=== PATIENT | male | born 1985 | race Caucasian/White ===

== ENCOUNTER 2018-12-29 22:46 | Inpatient (IN) ==
[2018-12-30] MEDS ORDERED: DEXTROSE 50% 25 GM/50 ML VIAL IV PRN (02:45)
[2018-12-30] MEDS ORDERED: GLUCAGON 1 MG VIAL IM PRN (02:45)
[2018-12-30] MEDS: MORPHINE 4 MG/1 ML VIAL IV PRN ×3 (04:26→20:34)
[2018-12-30 06:25] LABS: Basophils % 0.1 % (0.0-0.8); Eosinophils # 0.1 10*3/uL (0.0-0.87); Eosinophils % 0.6 % (0.00-10.9); Hematocrit 25.9 VOL% (42.0-52.0); Hemoglobin 7.5 GM/DL (14.0-18.0); Immature Granulocytes % 0.6 %; Immature Granulocytes Absolute 0.06 #; Lymphocytes # 1.5 10*3/uL (1.4-4.0); Lymphocytes % 14.8 % (21.2-54.2); Mean Corpuscular Volume 81.4 FL (87-102); Monocytes % 5.9 % (1.7-12.7); Platelet Count 264 T/CUMM (130-400); Red Blood Count 3.18 MC/CUMM (3.8-5.5); Red Cell Distribution Width 19.3 % (9.3-17.3); White Blood Count 10.2 T/CUMM (4-12)
[2018-12-30 07:12] LABS: Albumin 1.7 G/DL (3.4-5.0); Calcium 7.9 MG/DL (8.5-10.1); Osmolality,Calculated 284.7 MOS/KG (273-304); Total Protein 6.3 G/DL (6.4-8.3)
[2018-12-30 09:31] LABS: Basophils % 0.2 % (0.0-0.8); Eosinophils # 0.1 10*3/uL (0.0-0.87); Eosinophils % 0.6 % (0.00-10.9); Hematocrit 27.9 VOL% (42.0-52.0); Immature Granulocytes % 0.4 %; Immature Granulocytes Absolute 0.04 #; Lymphocytes # 1.4 10*3/uL (1.4-4.0); Lymphocytes % 13.2 % (21.2-54.2); Mean Corpuscular HGB Conc 28.7 GM/DL (32-36); Mean Corpuscular Volume 81.3 FL (87-102); Mean Platelet Volume 9.4 FL (9.6-12.0); Monocytes % 5.4 % (1.7-12.7); Neutrophils % 80.2 % (38.7-73.9); Platelet Count 293 T/CUMM (130-400); Red Blood Count 3.43 MC/CUMM (3.8-5.5); Red Cell Distribution Width 19.5 % (9.3-17.3); White Blood Count 10.2 T/CUMM (4-12)
[2018-12-30 09:33] LABS: PT Patient Result 10.9 SECS
[2018-12-30] MEDS: CLINDAMYCIN INJ 600 MG in PREMIX 1 EACH IV SCH ×2 (09:40→16:12)
[2018-12-30] MEDS: INSULIN REGULAR 100 UNIT/ML SUBCUT SCH ×4 (09:40→22:44)
[2018-12-30 10:05] LABS: Vitamin B12 > 2000 PG/ML (211-911)
[2018-12-30 10:16] LABS: Platelet Estimate Normal
[2018-12-30 10:17] LABS: Anisocytosis 2+
[2018-12-30] MEDS ORDERED: LIDOCAINE 1% 20 ML VIAL ONE (10:29)
[2018-12-30] MEDS ORDERED: BUPIVACAINE MPF 0.25% /EPI 30 ML VIAL ONE (10:29)
[2018-12-30 10:43] LABS: Sedimentation Rate-Westergren 105 MM/HR (0-15)
[2018-12-30] MEDS ORDERED: INSULIN REGULAR 100 UNIT/ML SUBCUT ONE (11:35)
[2018-12-30] MEDS ORDERED: ONDANSETRON 4 MG/2 ML VIAL IV PRN (12:33)
[2018-12-30] MEDS: HYDROmorphone 2 MG/1 ML VIAL IV PRN ×2 (12:35→12:40)
[2018-12-30] MEDS ORDERED: PROPOFOL 200 MG/20 ML VIAL IV ONE (13:38)
[2018-12-30] MEDS ORDERED: SEVOFLURANE 1 UNIT/15 MINUTE INH ONE (13:39)
[2018-12-30] MEDS ORDERED: fentaNYL 100 MCG/2 ML VIAL ONE (13:39)
[2018-12-30] MEDS ORDERED: MIDAZOLAM 2 MG/2 ML VIAL ONE (13:39)
[2018-12-30] MEDS ORDERED: ONDANSETRON 4 MG/2 ML VIAL ONE (13:39)
[2018-12-30 16:19] LABS: Hepatitis B Surface Ag Quant < 0.10 Index; Hepatitis B Surface Ag Result Negative (Negative); Hepatitis C Virus Ab Quant 0.12 Index; Hepatitis C Virus Ab Result Negative (Negative)
[2018-12-30] MEDS: VANCOMYCIN INJ 1,500 MG in SODIUM CHLORIDE 0.9% 500 ML IV SCH (18:11)
[2018-12-31] MEDS: CLINDAMYCIN INJ 600 MG in PREMIX 1 EACH IV SCH ×3 (00:47→16:20)
[2018-12-31 04:53] LABS: Basophils % 0.1 % (0.0-0.8); Eosinophils % 0.5 % (0.00-10.9); Hemoglobin 7.7 GM/DL (14.0-18.0); Immature Granulocytes % 0.2 %; Immature Granulocytes Absolute 0.02 #; Lymphocytes # 1.5 10*3/uL (1.4-4.0); Lymphocytes % 17.2 % (21.2-54.2); Mean Corpuscular HGB Conc 29.6 GM/DL (32-36); Mean Corpuscular Volume 79.8 FL (87-102); Mean Platelet Volume 9.7 FL (9.6-12.0); Monocytes % 5.8 % (1.7-12.7); Neutrophils % 76.2 % (38.7-73.9); Platelet Count 272 T/CUMM (130-400); Red Blood Count 3.26 MC/CUMM (3.8-5.5); Red Cell Distribution Width 19.1 % (9.3-17.3); White Blood Count 8.4 T/CUMM (4-12)
[2018-12-31 05:51] LABS: Albumin 1.7 G/DL (3.4-5.0); Bilirubin,Total 2.4 MG/DL (0.2-1.0); Osmolality,Calculated 283.4 MOS/KG (273-304); Total Protein 6.5 G/DL (6.4-8.3)
[2018-12-31] MEDS: VANCOMYCIN INJ 1,500 MG in SODIUM CHLORIDE 0.9% 500 ML IV SCH ×2 (06:55→18:02)
[2018-12-31] MEDS: MORPHINE 4 MG/1 ML VIAL IV PRN ×2 (07:03→19:04)
[2018-12-31] MEDS: INSULIN REGULAR 100 UNIT/ML SUBCUT SCH ×4 (07:16→22:07)
[2018-12-31 09:23] LABS: Hemoglobin A1 (Alkaline) 97.5 % (96.5-98.5); Hemoglobin A2 (Alkaline) 2.5 % (1.5-3.5)
[2018-12-31] MEDS: SODIUM CHLORIDE 0.9% 1,000 ML IV SCH ×2 (14:20→22:25)
[2018-12-31] MEDS: INSULIN LISPRO 100 UNIT/ML SUBCUT SCH ×2 (16:17→20:49)
[2018-12-31] MEDS ORDERED: INSULIN GLARGINE 100 UNIT/ML SUBCUT SCH (21:00)
[2019-01-01] MEDS: CLINDAMYCIN INJ 600 MG in PREMIX 1 EACH IV SCH ×3 (00:07→15:01)
[2019-01-01] MEDS: VANCOMYCIN INJ 1,500 MG in SODIUM CHLORIDE 0.9% 500 ML IV SCH ×2 (06:20→18:53)
[2019-01-01] MEDS: MORPHINE 4 MG/1 ML VIAL IV PRN ×2 (07:46→21:32)
[2019-01-01] MEDS: INSULIN REGULAR 100 UNIT/ML SUBCUT SCH ×4 (08:47→20:56)
[2019-01-01] MEDS: INSULIN LISPRO 100 UNIT/ML SUBCUT SCH ×4 (08:47→20:55)
[2019-01-01] MEDS: FUROSEMIDE 40 MG TABLET PO SCH (11:42)
[2019-01-01] MEDS ORDERED: INSULIN GLARGINE 100 UNIT/ML SUBCUT SCH (17:15)
[2019-01-01] MEDS: SPIRONOLACTONE 25 MG TABLET PO SCH (20:55)
[2019-01-02] MEDS: VANCOMYCIN INJ 1,500 MG in SODIUM CHLORIDE 0.9% 500 ML IV SCH (05:52)
[2019-01-02 08:05] LABS: Hematocrit 26.1 VOL% (42.0-52.0); Hemoglobin 7.8 GM/DL (14.0-18.0)
[2019-01-02] MEDS ORDERED: SODIUM CHLORIDE 0.9% 1,000 ML IV PRN (08:13)
[2019-01-02] MEDS ORDERED: SULFAMETHOX/TRIMETHOPRIM 800-160 MG TABLET PO SCH (09:00)
[2019-01-02] MEDS: FUROSEMIDE 40 MG TABLET PO SCH (09:04)
[2019-01-02] MEDS: SPIRONOLACTONE 25 MG TABLET PO SCH (09:04)
[2019-01-02] MEDS: INSULIN LISPRO 100 UNIT/ML SUBCUT SCH ×2 (09:05→11:58)
[2019-01-02] MEDS: INSULIN REGULAR 100 UNIT/ML SUBCUT SCH ×2 (09:17→12:12)
[2019-01-02] MEDS: MORPHINE 4 MG/1 ML VIAL IV PRN (09:41)
[2019-01-02 13:32] VITALS: BP 127/84
[2019-01-02 13:59] LABS: Hematocrit 31.6 VOL% (42.0-52.0)
[2019-01-02] MEDS ORDERED: VANCOMYCIN INJ 1,250 MG in SODIUM CHLORIDE 0.9% 250 ML IV SCH (14:00)
[2019-01-02 14:01] LABS: Hemoglobin 9.4 GM/DL (14.0-18.0)
== END 2019-01-02 14:22 | disposition home or self-care (01) | DRG 580 ==
LOC: EDBD → EDUNIT# → N.ED 22:46 → N.EDINP 12-30 02:45 → SUATTDRO 12-30 02:45 → N.2E 12-30 10:35
PROVIDERS: ADMIT Emergency Medicine; ATTEND Internal Medicine

== ENCOUNTER 2020-05-21 04:48 | Inpatient (IN) ==
[2020-05-21 05:43] LABS: Basophils % 0.2 % (0.0-0.8); Eosinophils % 0.2 % (0.00-10.9); Hematocrit 25.8 VOL% (42.0-52.0); Hemoglobin 7.6 GM/DL (14.0-18.0); Immature Granulocytes % 0.6 %; Immature Granulocytes Absolute 0.03 #; Lymphocytes # 0.5 10*3/uL (1.4-4.0); Lymphocytes % 10.3 % (21.2-54.2); Mean Corpuscular HGB Conc 29.5 GM/DL (32-36); Mean Corpuscular Volume 72.5 FL (87-102); Monocytes % 8.7 % (1.7-12.7); Platelet Count 160 T/CUMM (130-400); Red Blood Count 3.56 MC/CUMM (3.8-5.5); Red Cell Distribution Width 16.2 % (9.3-17.3); White Blood Count 4.9 T/CUMM (4-12)
[2020-05-21 06:04] LABS: Albumin 2.8 G/DL (3.4-5.0); Bilirubin,Total 2.6 MG/DL (0.2-1.0); Calcium 8.3 MG/DL (8.5-10.1); INR 1.1; Osmolality,Calculated 286.8 MOS/KG (273-304); PT Patient Result 11.4 SECS (9.8-11.9); Partial Thromboplastin Time 30.1 SECS (23.9-33.8); Total Protein 7.4 G/DL (6.4-8.3)
[2020-05-21] MEDS ORDERED: PANTOPRAZOLE 40 MG VIAL IV STA (06:13)
[2020-05-21] MEDS ORDERED: SODIUM CHLORIDE 0.9% 1,000 ML IV STA (06:13)
[2020-05-21] MEDS ORDERED: INSULIN LISPRO 100 UNIT/ML SUBCUT STA (06:51)
[2020-05-21] MEDS ORDERED: GLUCAGON 1 MG VIAL IM PRN (08:44)
[2020-05-21] MEDS ORDERED: ONDANSETRON 4 MG/2 ML VIAL IV PRN (08:44)
[2020-05-21] MEDS ORDERED: DEXTROSE 50% 25 GM/50 ML SYRINGE IV PRN (08:44)
[2020-05-21] MEDS ORDERED: SODIUM CHLORIDE 0.9% 1,000 ML IV PRN ×2 (08:44→15:12)
[2020-05-21] MEDS: SODIUM CHLORIDE 0.9% 1,000 ML IV SCH ×2 (09:01→21:59)
[2020-05-21 10:49] LABS: Bilirubin,Urine Negative (Negative); Blood, Urine Negative (Negative); Glucose,Urine (UA) >=500 mg/dL (Negative); Ketones,Urine 20 mg/dL (Negative); Nitrite,Urine Negative (Negative); Protein,Urine Negative; Urine Appearance CLEAR (Clear); Urine Color Yellow (Yellow); Urine Specific Gravity 1.026 (1.001-1.035)
[2020-05-21] MEDS: INSULIN REGULAR 100 UNIT/ML SUBCUT SCH ×2 (13:05→17:47)
[2020-05-21] MEDS ORDERED: SODIUM CHLORIDE 0.9% 500 ML IV ONE (13:34)
[2020-05-21 14:58] LABS: Hemoglobin 6.2 GM/DL (14.0-18.0)
[2020-05-21] MEDS ORDERED: INSULIN REGULAR 100 UNIT/ML SUBCUT SCH (16:30)
[2020-05-21] MEDS: methylPREDNISolone SOD SUC 40 MG/1 ML VIAL IV SCH (20:04)
[2020-05-21] MEDS: FLUDROCORTISONE 0.1 MG TABLET PO SCH (20:05)
[2020-05-21] MEDS ORDERED: INSULIN GLARGINE 100 UNIT/ML SUBCUT SCH (21:00)
[2020-05-21 21:32] LABS: Hematocrit 24.7 VOL% (42.0-52.0); Hemoglobin 7.4 GM/DL (14.0-18.0)
[2020-05-22] MEDS: INSULIN REGULAR 100 UNIT/ML SUBCUT SCH ×6 (00:13→21:35)
[2020-05-22] MEDS: MORPHINE 4 MG/1 ML VIAL IV PRN (00:14)
[2020-05-22 02:19] LABS: Hematocrit 25.5 VOL% (42.0-52.0); Hemoglobin 7.8 GM/DL (14.0-18.0)
[2020-05-22] MEDS: methylPREDNISolone SOD SUC 40 MG/1 ML VIAL IV SCH ×2 (04:22→16:19)
[2020-05-22 04:28] LABS: Hematocrit 25.1 VOL% (42.0-52.0); Hemoglobin 7.8 GM/DL (14.0-18.0); Immature Granulocytes % 0.8 %; Immature Granulocytes Absolute 0.03 #; Lymphocytes # 0.4 10*3/uL (1.4-4.0); Lymphocytes % 9.8 % (21.2-54.2); Mean Corpuscular HGB Conc 31.1 GM/DL (32-36); Mean Corpuscular Volume 72.3 FL (87-102); Mean Platelet Volume 10.9 FL (9.6-12.0); Neutrophils % 85.4 % (38.7-73.9); Platelet Count 168 T/CUMM (130-400); Red Blood Count 3.47 MC/CUMM (3.8-5.5); Red Cell Distribution Width 17.3 % (9.3-17.3); White Blood Count 3.8 T/CUMM (4-12)
[2020-05-22 04:56] LABS: Albumin 2.3 G/DL (3.4-5.0); Bilirubin,Total 2.2 MG/DL (0.2-1.0); Calcium 7.5 MG/DL (8.5-10.1); Osmolality,Calculated 283.8 MOS/KG (273-304); Total Protein 6.7 G/DL (6.4-8.3)
[2020-05-22] MEDS: SODIUM CHLORIDE 0.9% 1,000 ML IV SCH ×5 (06:28→22:26)
[2020-05-22] MEDS ORDERED: INSULIN REGULAR 100 UNIT/ML SUBCUT SCH (08:00)
[2020-05-22] MEDS: FLUDROCORTISONE 0.1 MG TABLET PO SCH (08:37)
[2020-05-22] MEDS: PANTOPRAZOLE 40 MG VIAL IV SCH (09:02)
[2020-05-22 11:02] LABS: Hematocrit 26.5 VOL% (42.0-52.0); Hemoglobin 8.1 GM/DL (14.0-18.0)
[2020-05-22 14:12] LABS: Hematocrit 26.3 VOL% (42.0-52.0)
[2020-05-22] MEDS ORDERED: INSULIN REGULAR 100 UNIT/ML SUBCUT ONE (14:18)
[2020-05-22] MEDS ORDERED: INSULIN GLARGINE 100 UNIT/ML SUBCUT ONE (14:18)
[2020-05-22] MEDS ORDERED: predniSONE 20 MG TABLET PO SCH (21:00)
[2020-05-22] MEDS: INSULIN GLARGINE 100 UNIT/ML SUBCUT SCH (21:35)
[2020-05-23] MEDS: INSULIN REGULAR 100 UNIT/ML SUBCUT SCH ×4 (00:42→11:49)
[2020-05-23] MEDS: MORPHINE 4 MG/1 ML VIAL IV PRN (00:45)
[2020-05-23] MEDS: methylPREDNISolone SOD SUC 40 MG/1 ML VIAL IV SCH (04:25)
[2020-05-23 06:34] LABS: Bilirubin,Total 1.9 MG/DL (0.2-1.0); Calcium 7.5 MG/DL (8.5-10.1); Osmolality,Calculated 286.7 MOS/KG (273-304); Total Protein 5.8 G/DL (6.4-8.3)
[2020-05-23] MEDS: SODIUM CHLORIDE 0.9% 1,000 ML IV SCH (08:00)
[2020-05-23] MEDS: PANTOPRAZOLE 40 MG VIAL IV SCH (09:42)
[2020-05-23] MEDS: INSULIN GLARGINE 100 UNIT/ML SUBCUT SCH (09:42)
[2020-05-23 10:16] LABS: Basophils % 0.2 % (0.0-0.8); Eosinophils % 0.2 % (0.00-10.9); Hematocrit 25.3 VOL% (42.0-52.0); Hemoglobin 7.7 GM/DL (14.0-18.0); Immature Granulocytes % 0.5 %; Immature Granulocytes Absolute 0.03 #; Lymphocytes % 16.5 % (21.2-54.2); Mean Corpuscular HGB Conc 30.4 GM/DL (32-36); Mean Corpuscular Volume 72.7 FL (87-102); Mean Platelet Volume 10.1 FL (9.6-12.0); Monocytes % 7.5 % (1.7-12.7); Neutrophils % 75.1 % (38.7-73.9); Platelet Count 171 T/CUMM (130-400); Red Blood Count 3.48 MC/CUMM (3.8-5.5); Red Cell Distribution Width 17.5 % (9.3-17.3); White Blood Count 6.3 T/CUMM (4-12)
[2020-05-23 11:19] VITALS: BP 100/57
== END 2020-05-23 15:03 | disposition home or self-care (01) | DRG 242 ==
LOC: N.ED 04:48 → N.EDINP 08:44 → SUATTDRO 08:44 → N.CC 11:39 → N.2E 05-22 16:14
PROVIDERS: ADMIT Internal Medicine; ATTEND Family Medicine

== ENCOUNTER 2020-10-29 07:58 | Inpatient (IN) ==
[2020-10-29] MEDS ORDERED: PANTOPRAZOLE 40 MG VIAL IV STA (08:14)
[2020-10-29 08:22] LABS: Basophils % 0.1 % (0.0-0.8); Eosinophils % 0.1 % (0.00-10.9); Hematocrit 28.6 VOL% (42.0-52.0); Hemoglobin 8.2 GM/DL (14.0-18.0); Immature Granulocytes % 0.8 %; Immature Granulocytes Absolute 0.08 #; Lymphocytes # 0.9 10*3/uL (1.4-4.0); Lymphocytes % 8.7 % (21.2-54.2); Mean Corpuscular HGB Conc 28.7 GM/DL (32-36); Mean Corpuscular Volume 74.7 FL (87-102); Mean Platelet Volume 11.7 FL (9.6-12.0); Monocytes % 4.3 % (1.7-12.7); Platelet Count 212 T/CUMM (130-400); Red Blood Count 3.83 MC/CUMM (3.8-5.5); Red Cell Distribution Width 17.5 % (9.3-17.3); White Blood Count 9.8 T/CUMM (4-12)
[2020-10-29 08:35] LABS: INR 1.1; PT Patient Result 12.3 SECS (10.5-12.0); Partial Thromboplastin Time 28.3 SECS (23.9-33.8)
[2020-10-29 08:44] LABS: Albumin 2.7 G/DL (3.4-5.0); Bilirubin,Total 4.4 MG/DL (0.2-1.0); Calcium 8.5 MG/DL (8.5-10.1); Osmolality,Calculated 291.8 MOS/KG (273-304); Potassium 4.9 MMOL/L (3.5-5.1); Total Protein 6.8 G/DL (6.4-8.2)
[2020-10-29] MEDS ORDERED: INSULIN LISPRO 100 UNIT/ML SUBCUT STA (08:48)
[2020-10-29 09:12] LABS: Hypochromasia 1+; Microcytosis 1+; Platelet Estimate Adequate
[2020-10-29] MEDS ORDERED: ALBUTEROL 2.5 MG/3 ML NEB RESP TX PRN (10:32)
[2020-10-29] MEDS ORDERED: MAGNESIUM SULF RIDER 4 GM/100 ML PREMIX IV PRN (10:34)
[2020-10-29] MEDS ORDERED: OCTREOTIDE 100 MCG/ML SYRINGE IV ONE ×2 (10:34→13:00)
[2020-10-29] MEDS ORDERED: SODIUM BICARB INJ 100 MEQ in STERILE WATER INJ 400 ML IV PRN (10:34)
[2020-10-29] MEDS ORDERED: DEXTROSE 50% 25 GM/50 ML VIAL IV PRN ×3 (10:34→17:32)
[2020-10-29] MEDS ORDERED: SODIUM PHOSPHATE INJ 19.3 MMOL in SODIUM CHLORIDE 0.9% 250 ML IV PRN (10:34)
[2020-10-29] MEDS ORDERED: SODIUM CHLORIDE 0.9% 1,000 ML IV ONE (10:34)
[2020-10-29] MEDS ORDERED: POTASSIUM CHLORIDE RIDER 10 MEQ in PREMIX 1 EACH IV PRN (10:34)
[2020-10-29] MEDS ORDERED: INSULIN REGULAR DRIP 100 ML IV SCH (11:00)
[2020-10-29 11:06] LABS: Bilirubin,Urine Negative (Negative); Blood, Urine Negative (Negative); Glucose,Urine (UA) >=500 mg/dL (Negative); Ketones,Urine 80 mg/dL (Negative); Nitrite,Urine Negative (Negative); Protein,Urine Negative; RBC,Urine 1 /HPF (0-4); Urine Appearance CLEAR (Clear); Urine Color Yellow (Yellow); Urine Specific Gravity 1.021 (1.001-1.035); Urine Urobilinogen < 2.0 EU/DL (0.2-1.0)
[2020-10-29] MEDS: SODIUM CHLORIDE 0.9% 1,000 ML IV SCH ×5 (11:58→22:01)
[2020-10-29 12:52] LABS: Hematocrit 23.9 VOL% (42.0-52.0)
[2020-10-29 13:00] LABS: Calcium 7.5 MG/DL (8.5-10.1); Osmolality,Calculated 294.7 MOS/KG (273-304); Potassium 4.6 MMOL/L (3.5-5.1)
[2020-10-29] MEDS: PANTOPRAZOLE INJ 200 MG in SODIUM CHLORIDE 0.9% 250 ML IV SCH (13:09)
[2020-10-29] MEDS: OCTREOTIDE 500 MCG in SODIUM CHLORIDE 0.9% 100 ML IV SCH ×2 (14:21→22:10)
[2020-10-29] MEDS ORDERED: SODIUM CHLORIDE 0.9% 1,000 ML IV PRN (14:25)
[2020-10-29] MEDS: DEXTROSE 5% NACL 0.9% 1,000 ML IV SCH ×2 (16:10→21:54)
[2020-10-29 16:31] LABS: Hematocrit 22.4 VOL% (42.0-52.0); Hemoglobin 6.6 GM/DL (14.0-18.0)
[2020-10-29 16:44] LABS: Calcium 7.5 MG/DL (8.5-10.1); Osmolality,Calculated 290.3 MOS/KG (273-304); Potassium 4.1 MMOL/L (3.5-5.1)
[2020-10-29] MEDS: LACTULOSE 20 GM/30 ML UDCUP PO SCH ×2 (16:57→22:13)
[2020-10-29] MEDS ORDERED: GLUCAGON 1 MG VIAL IM PRN (17:32)
[2020-10-29] MEDS: INSULIN GLARGINE 100 UNIT/ML SUBCUT SCH ×2 (18:06→21:55)
[2020-10-29] MEDS: INSULIN LISPRO 100 UNIT/ML SUBCUT SCH (21:45)
[2020-10-29] MEDS ORDERED: ONDANSETRON 4 MG/2 ML VIAL IV PRN (23:30)
[2020-10-29] MEDS ORDERED: PROMETHAZINE 25 MG/1 ML VIAL IM PRN (23:32)
[2020-10-30] MEDS: OCTREOTIDE 500 MCG in SODIUM CHLORIDE 0.9% 100 ML IV SCH ×3 (00:20→23:20)
[2020-10-30 00:50] LABS: Hematocrit 21.7 VOL% (42.0-52.0); Hemoglobin 6.7 GM/DL (14.0-18.0)
[2020-10-30 02:53] LABS: Basophils % 0.1 % (0.0-0.8); Eosinophils # 0.1 10*3/uL (0.0-0.87); Eosinophils % 0.9 % (0.00-10.9); Hematocrit 21.6 VOL% (42.0-52.0); Hemoglobin 6.6 GM/DL (14.0-18.0); Immature Granulocytes % 0.4 %; Immature Granulocytes Absolute 0.04 #; Lymphocytes # 1.4 10*3/uL (1.4-4.0); Lymphocytes % 15.1 % (21.2-54.2); Mean Corpuscular HGB Conc 30.6 GM/DL (32-36); Mean Corpuscular Volume 73.5 FL (87-102); Mean Platelet Volume 10.4 FL (9.6-12.0); Monocytes % 6.7 % (1.7-12.7); Neutrophils % 76.8 % (38.7-73.9); Platelet Count 174 T/CUMM (130-400); Red Blood Count 2.94 MC/CUMM (3.8-5.5); White Blood Count 9.3 T/CUMM (4-12)
[2020-10-30 03:04] LABS: INR 1.1; PT Patient Result 12.4 SECS (10.5-12.0)
[2020-10-30 03:11] LABS: Albumin 2.2 G/DL (3.4-5.0); Calcium 7.4 MG/DL (8.5-10.1); Osmolality,Calculated 275.7 MOS/KG (273-304); Potassium 3.7 MMOL/L (3.5-5.1); Risk Ratio 6.43; Total Protein 5.3 G/DL (6.4-8.2); VLDL CHOLESTEROL 24.2 MG/DL
[2020-10-30] MEDS ORDERED: SODIUM CHLORIDE 0.9% 1,000 ML IV PRN ×3 (03:24→16:39)
[2020-10-30] MEDS: SODIUM CHLORIDE 0.45% 1,000 ML IV SCH ×2 (05:25→13:30)
[2020-10-30] MEDS: DEXTROSE 5% NACL 0.9% 1,000 ML IV SCH (05:25)
[2020-10-30] MEDS: INSULIN LISPRO 100 UNIT/ML SUBCUT SCH ×4 (08:17→20:37)
[2020-10-30 08:33] LABS: Hemoglobin 7.1 GM/DL (14.0-18.0)
[2020-10-30] MEDS: INSULIN GLARGINE 100 UNIT/ML SUBCUT SCH ×2 (08:50→20:38)
[2020-10-30] MEDS ORDERED: LACTATED RINGERS 1,000 ML IV SCH (09:30)
[2020-10-30] MEDS ORDERED: propofoL 200 MG/20 ML VIAL IV ONE (12:42)
[2020-10-30] MEDS ORDERED: LIDOCAINE 2% 5 ML VIAL ONE (12:42)
[2020-10-30 13:38] LABS: Hematocrit 22.3 VOL% (42.0-52.0); Hemoglobin 6.9 GM/DL (14.0-18.0)
[2020-10-30] MEDS: MAGNESIUM SULF RIDER 2 GM/50 ML PREMIX IV PRN (13:58)
[2020-10-30] MEDS: LACTULOSE 20 GM/30 ML UDCUP PO SCH ×3 (14:15→21:16)
[2020-10-30] MEDS: PANTOPRAZOLE INJ 200 MG in SODIUM CHLORIDE 0.9% 250 ML IV SCH (17:51)
[2020-10-30] MEDS ORDERED: predniSONE 20 MG TABLET PO SCH (21:00)
[2020-10-30] MEDS ORDERED: azaTHIOprine 50 MG TABLET PO SCH (21:00)
[2020-10-30 21:54] LABS: Hematocrit 23.9 VOL% (42.0-52.0); Hemoglobin 7.5 GM/DL (14.0-18.0)
[2020-10-31 00:38] LABS: Hemoglobin 7.5 GM/DL (14.0-18.0)
[2020-10-31 05:08] LABS: Basophils % 0.2 % (0.0-0.8); Eosinophils # 0.1 10*3/uL (0.0-0.87); Eosinophils % 1.1 % (0.00-10.9); Hematocrit 23.9 VOL% (42.0-52.0); Hemoglobin 7.3 GM/DL (14.0-18.0); Immature Granulocytes % 0.6 %; Immature Granulocytes Absolute 0.03 #; Lymphocytes # 1.1 10*3/uL (1.4-4.0); Lymphocytes % 21.4 % (21.2-54.2); Mean Corpuscular HGB Conc 30.5 GM/DL (32-36); Mean Corpuscular Volume 79.1 FL (87-102); Mean Platelet Volume 10.7 FL (9.6-12.0); Monocytes % 8.1 % (1.7-12.7); Neutrophils % 68.6 % (38.7-73.9); Platelet Count 145 T/CUMM (130-400); Red Blood Count 3.02 MC/CUMM (3.8-5.5); Red Cell Distribution Width 19.5 % (9.3-17.3); White Blood Count 5.3 T/CUMM (4-12)
[2020-10-31 05:26] LABS: Albumin 2.1 G/DL (3.4-5.0); Calcium 7.4 MG/DL (8.5-10.1); Osmolality,Calculated 286.4 MOS/KG (273-304); Total Protein 5.1 G/DL (6.4-8.2)
[2020-10-31 05:28] LABS: Eosinophils 1 % (0-10); Hypochromasia 1+; Lymphocytes 15 % (20-55); Microcytosis 1+; Platelet Estimate Adequate; Segmented Neutrophils 78 % (50-85); Total Cells Counted 100
[2020-10-31 08:20] LABS: Hematocrit 24.7 VOL% (42.0-52.0); Hemoglobin 7.6 GM/DL (14.0-18.0)
[2020-10-31] MEDS: MAGNESIUM SULF RIDER 2 GM/50 ML PREMIX IV PRN (08:53)
[2020-10-31] MEDS: SODIUM CHLORIDE 0.45% 1,000 ML IV SCH (08:53)
[2020-10-31] MEDS: INSULIN LISPRO 100 UNIT/ML SUBCUT SCH ×4 (08:54→21:03)
[2020-10-31] MEDS: LACTULOSE 20 GM/30 ML UDCUP PO SCH ×3 (09:05→21:03)
[2020-10-31] MEDS: OCTREOTIDE 500 MCG in SODIUM CHLORIDE 0.9% 100 ML IV SCH ×2 (09:31→14:57)
[2020-10-31] MEDS: PANTOPRAZOLE INJ 200 MG in SODIUM CHLORIDE 0.9% 250 ML IV SCH ×2 (14:57→21:05)
[2020-10-31] MEDS: DEXTROSE 5% NACL 0.9% 1,000 ML IV SCH (15:25)
[2020-10-31] MEDS: INSULIN GLARGINE 100 UNIT/ML SUBCUT SCH (21:04)
[2020-11-01] MEDS: OCTREOTIDE 500 MCG in SODIUM CHLORIDE 0.9% 100 ML IV SCH ×2 (05:08→08:06)
[2020-11-01] MEDS: SODIUM CHLORIDE 0.45% 1,000 ML IV SCH (05:09)
[2020-11-01] MEDS: INSULIN LISPRO 100 UNIT/ML SUBCUT SCH ×4 (07:21→21:06)
[2020-11-01] MEDS: LACTULOSE 20 GM/30 ML UDCUP PO SCH ×3 (08:05→21:12)
[2020-11-01 08:32] LABS: Eosinophils # 0.1 10*3/uL (0.0-0.87); Eosinophils % 1.4 % (0.00-10.9); Hematocrit 23.9 VOL% (42.0-52.0); Hemoglobin 7.6 GM/DL (14.0-18.0); Immature Granulocytes % 0.5 %; Immature Granulocytes Absolute 0.02 #; Lymphocytes # 0.9 10*3/uL (1.4-4.0); Lymphocytes % 20.2 % (21.2-54.2); Mean Corpuscular HGB Conc 31.8 GM/DL (32-36); Mean Corpuscular Volume 76.6 FL (87-102); Mean Platelet Volume 9.9 FL (9.6-12.0); Monocytes % 8.6 % (1.7-12.7); Neutrophils % 69.3 % (38.7-73.9); Platelet Count 136 T/CUMM (130-400); Red Blood Count 3.12 MC/CUMM (3.8-5.5); Red Cell Distribution Width 19.6 % (9.3-17.3); White Blood Count 4.4 T/CUMM (4-12)
[2020-11-01 08:44] LABS: Calcium 7.4 MG/DL (8.5-10.1); Osmolality,Calculated 279.5 MOS/KG (273-304); Potassium 3.6 MMOL/L (3.5-5.1)
[2020-11-01] MEDS: PANTOPRAZOLE INJ 200 MG in SODIUM CHLORIDE 0.9% 250 ML IV SCH ×2 (11:40→21:07)
[2020-11-01] MEDS: INSULIN GLARGINE 100 UNIT/ML SUBCUT SCH (21:12)
[2020-11-02] MEDS: SODIUM CHLORIDE 0.45% 1,000 ML IV SCH (00:51)
[2020-11-02 05:59] LABS: Basophils % 0.3 % (0.0-0.8); Eosinophils % 1.1 % (0.00-10.9); Hematocrit 23.6 VOL% (42.0-52.0); Immature Granulocytes % 0.3 %; Immature Granulocytes Absolute 0.01 #; Lymphocytes # 0.8 10*3/uL (1.4-4.0); Mean Corpuscular HGB Conc 29.7 GM/DL (32-36); Mean Corpuscular Volume 79.7 FL (87-102); Mean Platelet Volume 10.5 FL (9.6-12.0); Monocytes % 7.3 % (1.7-12.7); Platelet Count 119 T/CUMM (130-400); Red Blood Count 2.96 MC/CUMM (3.8-5.5); Red Cell Distribution Width 19.6 % (9.3-17.3); White Blood Count 3.6 T/CUMM (4-12)
[2020-11-02 06:13] LABS: Calcium 7.5 MG/DL (8.5-10.1); Osmolality,Calculated 286.8 MOS/KG (273-304); Potassium 3.8 MMOL/L (3.5-5.1)
[2020-11-02] MEDS: LACTULOSE 20 GM/30 ML UDCUP PO SCH (08:27)
[2020-11-02] MEDS: INSULIN LISPRO 100 UNIT/ML SUBCUT SCH ×2 (08:27→12:21)
[2020-11-02] MEDS ORDERED: SODIUM CHLORIDE 0.9% 1,000 ML IV PRN (10:24)
[2020-11-02 13:54] VITALS: BP 101/67
[2020-11-02 14:16] LABS: Hematocrit 24.8 VOL% (42.0-52.0); Hemoglobin 7.7 GM/DL (14.0-18.0)
== END 2020-11-02 16:54 | disposition home or self-care (01) | DRG 229 ==
LOC: N.ED 07:58 → SUATTDRO 10:32 → N.EDINP 10:32 → N.CC 11:32
PROVIDERS: ADMIT Internal Medicine; ATTEND Family Medicine
PROC: EGDWEBL (ICD-10-PCS; 2020-10-30 09:45)

== ENCOUNTER 2020-11-22 07:54 | Inpatient (IN) ==
[2020-11-22] MEDS ORDERED: KETOROLAC 30 MG/1 ML VIAL IM STA (08:13)
[2020-11-22 08:41] LABS: Basophils % 0.1 % (0.0-0.8); Eosinophils # 0.1 10*3/uL (0.0-0.87); Eosinophils % 0.6 % (0.00-10.9); Hemoglobin 7.4 GM/DL (14.0-18.0); Lymphocytes # 0.7 10*3/uL (1.4-4.0); Lymphocytes % 6.3 % (21.2-54.2); Mean Corpuscular HGB Conc 29.6 GM/DL (32-36); Mean Platelet Volume 10.2 FL (9.6-12.0); Monocytes % 7.2 % (1.7-12.7); Neutrophils % 84.8 % (38.7-73.9); Platelet Count 301 T/CUMM (130-400); Red Blood Count 3.29 MC/CUMM (3.8-5.5); White Blood Count 10.4 T/CUMM (4-12)
[2020-11-22 09:12] LABS: Albumin 2.1 G/DL (3.4-5.0); Bilirubin,Total 5.2 MG/DL (0.2-1.0); Calcium 8.2 MG/DL (8.5-10.1); Osmolality,Calculated 280.8 MOS/KG (273-304); Potassium 3.6 MMOL/L (3.5-5.1); Total Protein 7.1 G/DL (6.4-8.2)
[2020-11-22] MEDS ORDERED: TISSUE ADHESIVE 1 EACH APPLICATOR TOP ONE (09:35)
[2020-11-22] MEDS ORDERED: KETOROLAC 30 MG/1 ML VIAL IV STA (10:07)
[2020-11-22] MEDS ORDERED: DEXTROSE 50% 25 GM/50 ML VIAL IV PRN ×2 (10:10→10:14)
[2020-11-22] MEDS ORDERED: ONDANSETRON 4 MG/2 ML VIAL IV PRN (10:10)
[2020-11-22] MEDS ORDERED: GLUCAGON 1 MG VIAL IM PRN (10:10)
[2020-11-22 10:20] LABS: Neutrophils,Peritoneal Fluid 36 %
[2020-11-22 10:21] LABS: RBC,Peritoneal Fluid < 1 T/CUMM
[2020-11-22] MEDS: INSULIN REGULAR 100 UNIT/ML SUBCUT SCH ×3 (12:30→22:17)
[2020-11-22] MEDS: FUROSEMIDE 40 MG/4 ML VIAL IV SCH ×2 (15:14→22:17)
[2020-11-22] MEDS: SPIRONOLACTONE 100 MG TABLET PO SCH (15:14)
[2020-11-22] MEDS: predniSONE 20 MG TABLET PO SCH ×2 (15:14→22:17)
[2020-11-22] MEDS: azaTHIOprine 50 MG TABLET PO SCH ×2 (15:14→22:17)
[2020-11-22] MEDS: traMADol 50 MG TABLET PO PRN ×2 (17:13→22:23)
[2020-11-22 18:59] LABS: Blood, Urine Negative (Negative); Glucose,Urine (UA) >=500 mg/dL (Negative); Ketones,Urine Negative (Negative); Mucus,Urine Few /LPF (Occasional); Nitrite,Urine Negative (Negative); Protein,Urine Negative; RBC,Urine 4 /HPF (0-4); Squamous Epithelial Cell,Urine Occasional /HPF (0-10); Urine Appearance CLEAR (Clear); Urine Color Amber (Yellow); Urine Specific Gravity 1.023 (1.001-1.035)
[2020-11-22 19:00] LABS: Bilirubin,Urine Small mg/dL (Negative)
[2020-11-22] MEDS ORDERED: INSULIN GLARGINE 100 UNIT/ML SUBCUT SCH (21:00)
[2020-11-23] MEDS: INSULIN REGULAR 100 UNIT/ML SUBCUT SCH ×6 (01:01→22:08)
[2020-11-23 06:36] LABS: Basophils % 0.1 % (0.0-0.8); Hematocrit 22.3 VOL% (42.0-52.0); Hemoglobin 6.6 GM/DL (14.0-18.0); Immature Granulocytes % 0.7 %; Immature Granulocytes Absolute 0.06 #; Lymphocytes # 0.6 10*3/uL (1.4-4.0); Lymphocytes % 7.5 % (21.2-54.2); Mean Corpuscular HGB Conc 29.6 GM/DL (32-36); Mean Corpuscular Volume 75.3 FL (87-102); Mean Platelet Volume 10.3 FL (9.6-12.0); Monocytes % 3.6 % (1.7-12.7); Neutrophils % 88.1 % (38.7-73.9); Platelet Count 277 T/CUMM (130-400); Red Blood Count 2.96 MC/CUMM (3.8-5.5); Red Cell Distribution Width 19.9 % (9.3-17.3); White Blood Count 8.3 T/CUMM (4-12)
[2020-11-23 06:50] LABS: INR 1.1; PT Patient Result 11.8 SECS (10.5-12.0)
[2020-11-23 07:07] LABS: Bilirubin,Direct 4.01 MG/DL (0.0-0.20)
[2020-11-23 07:19] LABS: Albumin 1.8 G/DL (3.4-5.0); Bilirubin,Total 4.9 MG/DL (0.2-1.0); Calcium 7.8 MG/DL (8.5-10.1); Osmolality,Calculated 279.5 MOS/KG (273-304); Potassium 4.1 MMOL/L (3.5-5.1); Total Protein 6.5 G/DL (6.4-8.2)
[2020-11-23] MEDS: predniSONE 20 MG TABLET PO SCH (09:28)
[2020-11-23] MEDS: SPIRONOLACTONE 100 MG TABLET PO SCH (09:29)
[2020-11-23] MEDS: azaTHIOprine 50 MG TABLET PO SCH ×2 (09:30→22:07)
[2020-11-23] MEDS: FUROSEMIDE 40 MG/4 ML VIAL IV SCH ×2 (09:30→22:09)
[2020-11-23] MEDS ORDERED: MELOXICAM 7.5 MG TABLET PO SCH (11:03)
[2020-11-23] MEDS ORDERED: SODIUM CHLORIDE 0.9% 1,000 ML IV PRN (11:05)
[2020-11-23] MEDS ORDERED: ACETAMINOPHEN 500 MG TABLET PO PRN (16:06)
[2020-11-23] MEDS ORDERED: IRON DEXTRAN 25 MG in SYRINGE 1 EACH IV ONE (17:00)
[2020-11-23] MEDS ORDERED: SODIUM CHLORIDE 0.9% IV ONE (18:00)
[2020-11-23] MEDS ORDERED: IRON DEXTRAN IV ONE (18:00)
[2020-11-23] MEDS ORDERED: INSULIN GLARGINE 100 UNIT/ML SUBCUT SCH (21:00)
[2020-11-23] MEDS: traMADol 50 MG TABLET PO PRN (22:06)
[2020-11-23] MEDS: FAMOTIDINE 20 MG TABLET PO SCH (22:07)
[2020-11-24 05:14] LABS: Basophils % 0.1 % (0.0-0.8); Eosinophils % 0.2 % (0.00-10.9); Hematocrit 24.9 VOL% (42.0-52.0); Hemoglobin 7.9 GM/DL (14.0-18.0); Lymphocytes # 1.4 10*3/uL (1.4-4.0); Lymphocytes % 14.9 % (21.2-54.2); Mean Corpuscular HGB Conc 31.7 GM/DL (32-36); Mean Platelet Volume 9.5 FL (9.6-12.0); Monocytes % 8.8 % (1.7-12.7); Platelet Count 262 T/CUMM (130-400); Red Blood Count 3.32 MC/CUMM (3.8-5.5); Red Cell Distribution Width 19.9 % (9.3-17.3); White Blood Count 9.6 T/CUMM (4-12)
[2020-11-24 05:46] LABS: Albumin 1.7 G/DL (3.4-5.0); Bilirubin,Total 3.6 MG/DL (0.2-1.0); Calcium 7.9 MG/DL (8.5-10.1); Potassium 3.3 MMOL/L (3.5-5.1); Total Protein 6.2 G/DL (6.4-8.2)
[2020-11-24] MEDS: traMADol 50 MG TABLET PO PRN (06:05)
[2020-11-24] MEDS: INSULIN REGULAR 100 UNIT/ML SUBCUT SCH (07:38)
[2020-11-24] MEDS ORDERED: POTASSIUM CHLORIDE 20 MEQ TABLET PO ONE (08:18)
[2020-11-24] MEDS: azaTHIOprine 50 MG TABLET PO SCH (08:38)
[2020-11-24] MEDS: SPIRONOLACTONE 100 MG TABLET PO SCH (08:38)
[2020-11-24] MEDS: FAMOTIDINE 20 MG TABLET PO SCH (08:38)
[2020-11-24] MEDS: FUROSEMIDE 40 MG/4 ML VIAL IV SCH (08:40)
[2020-11-24] MEDS ORDERED: predniSONE 20 MG TABLET PO SCH (09:00)
[2020-11-24] MEDS ORDERED: NAPROXEN 250 MG TABLET PO PRN (10:01)
[2020-11-24 11:59] VITALS: BP 120/55
== END 2020-11-24 12:41 | disposition home or self-care (01) ==
LOC: N.ED 07:54 → N.EDINP 07:54 → SUATTDRO 09:58 → N.5E 16:01
PROVIDERS: ADMIT Hospitalist; ATTEND Emergency Medicine

== ENCOUNTER 2020-11-26 03:29 | Inpatient (IN) ==
[2020-11-26] MEDS ORDERED: MORPHINE 4 MG/1 ML VIAL IV STA (04:03)
[2020-11-26] MEDS ORDERED: ONDANSETRON 4 MG/2 ML VIAL IV ONE (04:03)
[2020-11-26] MEDS ORDERED: PANTOPRAZOLE INJ 80 MG in SODIUM CHLORIDE 0.9% 100 ML IV ONE (04:03)
[2020-11-26] MEDS ORDERED: PANTOPRAZOLE 40 MG VIAL IV ONE (04:11)
[2020-11-26 04:13] LABS: Basophils % 0.1 % (0.0-0.8); Eosinophils # 0.1 10*3/uL (0.0-0.87); Eosinophils % 0.4 % (0.00-10.9); Hematocrit 22.5 VOL% (42.0-52.0); Hemoglobin 6.7 GM/DL (14.0-18.0); Immature Granulocytes % 1.3 %; Immature Granulocytes Absolute 0.22 #; Mean Corpuscular HGB Conc 29.8 GM/DL (32-36); Mean Corpuscular Volume 78.7 FL (87-102); Mean Platelet Volume 10.2 FL (9.6-12.0); Monocytes % 7.6 % (1.7-12.7); NRBC # 0.03 10*3/uL; Neutrophils % 84.6 % (38.7-73.9); Platelet Count 259 T/CUMM (130-400); Red Blood Count 2.86 MC/CUMM (3.8-5.5)
[2020-11-26 04:24] LABS: INR 1.1; PT Patient Result 12.6 SECS (10.5-12.0); Partial Thromboplastin Time 28.3 SECS (23.9-33.8)
[2020-11-26 04:28] LABS: Albumin 1.9 G/DL (3.4-5.0); Bilirubin,Total 4.4 MG/DL (0.2-1.0); Calcium 8.4 MG/DL (8.5-10.1); Osmolality,Calculated 281.2 MOS/KG (273-304); Potassium 3.3 MMOL/L (3.5-5.1); Total Protein 5.9 G/DL (6.4-8.2)
[2020-11-26 04:32] LABS: Hypochromasia 2+; Ovalocytes Slight; Platelet Estimate Adequate
[2020-11-26] MEDS ORDERED: SODIUM CHLORIDE 0.9% 1,000 ML IV STA (04:42)
[2020-11-26] MEDS: PANTOPRAZOLE INJ 200 MG in SODIUM CHLORIDE 0.9% 250 ML IV SCH (05:10)
[2020-11-26] MEDS ORDERED: SODIUM CHLORIDE 0.9% 1,000 ML IV PRN (05:34)
[2020-11-26] MEDS ORDERED: FUROSEMIDE 20 MG/2 ML VIAL IV PRN (05:35)
[2020-11-26] MEDS ORDERED: DEXTROSE 50% 25 GM/50 ML VIAL IV PRN (05:38)
[2020-11-26] MEDS ORDERED: GLUCAGON 1 MG VIAL IM PRN (05:38)
[2020-11-26] MEDS ORDERED: ONDANSETRON 4 MG/2 ML VIAL IV PRN (05:39)
[2020-11-26] MEDS: INSULIN LISPRO 100 UNIT/ML SUBCUT SCH ×4 (07:16→20:35)
[2020-11-26 08:15] LABS: Hematocrit 19.7 VOL% (42.0-52.0)
[2020-11-26 08:47] LABS: Hemoglobin 5.9 GM/DL (14.0-18.0)
[2020-11-26] MEDS ORDERED: POTASSIUM CHLORIDE RIDER 10 MEQ/100 ML PREMIX IV PRN (09:02)
[2020-11-26] MEDS: LACTATED RINGERS 1,000 ML IV SCH (10:45)
[2020-11-26] MEDS ORDERED: propofoL 200 MG/20 ML VIAL IV ONE (11:15)
[2020-11-26] MEDS ORDERED: ETOMIDATE 20 MG/10 ML VIAL IV ONE (11:15)
[2020-11-26] MEDS ORDERED: LIDOCAINE 2% 5 ML VIAL ONE (11:15)
[2020-11-26] MEDS: OCTREOTIDE 500 MCG in SODIUM CHLORIDE 0.9% 100 ML IV SCH ×2 (13:00→23:37)
[2020-11-26] MEDS: MORPHINE 4 MG/1 ML VIAL IV PRN ×3 (13:04→21:25)
[2020-11-26 13:39] LABS: Hematocrit 25.3 VOL% (42.0-52.0)
[2020-11-26 13:49] LABS: Hemoglobin 7.7 GM/DL (14.0-18.0)
[2020-11-26 19:49] LABS: Hematocrit 26.9 VOL% (42.0-52.0); Hemoglobin 8.2 GM/DL (14.0-18.0)
[2020-11-26] MEDS: ACETAMINOPHEN 325 MG TABLET PO PRN (22:22)
[2020-11-27] MEDS: PANTOPRAZOLE INJ 200 MG in SODIUM CHLORIDE 0.9% 250 ML IV SCH (03:32)
[2020-11-27] MEDS: MORPHINE 4 MG/1 ML VIAL IV PRN ×2 (03:40→09:40)
[2020-11-27 05:13] LABS: Basophils % 0.2 % (0.0-0.8); Eosinophils % 0.2 % (0.00-10.9); Hematocrit 23.9 VOL% (42.0-52.0); Hemoglobin 7.7 GM/DL (14.0-18.0); Immature Granulocytes % 1.3 %; Immature Granulocytes Absolute 0.26 #; Lymphocytes # 1.5 10*3/uL (1.4-4.0); Lymphocytes % 7.4 % (21.2-54.2); Mean Corpuscular HGB Conc 32.2 GM/DL (32-36); Mean Corpuscular Volume 79.7 FL (87-102); Mean Platelet Volume 10.1 FL (9.6-12.0); NRBC # 0.02 10*3/uL; Neutrophils % 81.9 % (38.7-73.9); Platelet Count 225 T/CUMM (130-400); Red Cell Distribution Width 22.2 % (9.3-17.3); White Blood Count 19.9 T/CUMM (4-12)
[2020-11-27 05:38] LABS: Albumin 1.6 G/DL (3.4-5.0); Bilirubin,Total 7.1 MG/DL (0.2-1.0); Calcium 8.1 MG/DL (8.5-10.1); Osmolality,Calculated 276.8 MOS/KG (273-304); Potassium 4.1 MMOL/L (3.5-5.1); Total Protein 5.5 G/DL (6.4-8.2)
[2020-11-27] MEDS: INSULIN LISPRO 100 UNIT/ML SUBCUT SCH ×4 (08:28→21:10)
[2020-11-27] MEDS: OCTREOTIDE 500 MCG in SODIUM CHLORIDE 0.9% 100 ML IV SCH ×2 (09:40→23:28)
[2020-11-27] MEDS: LACTATED RINGERS 1,000 ML IV SCH (10:43)
[2020-11-27 13:29] LABS: Hematocrit 25.9 VOL% (42.0-52.0)
[2020-11-27] MEDS: oxyCODONE IR 5 MG TABLET PO PRN ×2 (14:26→22:12)
[2020-11-27] MEDS ORDERED: LORazepam 2 MG/1 ML VIAL IV PRN (15:06)
[2020-11-27 16:02] LABS: Folate 9.53 NG/ML (5.38-24.0)
[2020-11-27] MEDS: CIPROFLOXACIN INJ 400 MG/200 ML PREMIX IV SCH (18:23)
[2020-11-27] MEDS: ACETAMINOPHEN 325 MG TABLET PO PRN (21:09)
[2020-11-27] MEDS: INSULIN GLARGINE 100 UNIT/ML SUBCUT SCH (21:09)
[2020-11-28] MEDS: PANTOPRAZOLE INJ 200 MG in SODIUM CHLORIDE 0.9% 250 ML IV SCH (04:48)
[2020-11-28] MEDS: CIPROFLOXACIN INJ 400 MG/200 ML PREMIX IV SCH ×2 (04:48→17:19)
[2020-11-28 06:30] LABS: Basophils % 0.1 % (0.0-0.8); Eosinophils # 0.1 10*3/uL (0.0-0.87); Eosinophils % 0.4 % (0.00-10.9); Hematocrit 25.1 VOL% (42.0-52.0); Hemoglobin 7.7 GM/DL (14.0-18.0); Immature Granulocytes % 1.7 %; Immature Granulocytes Absolute 0.24 #; Lymphocytes # 1.2 10*3/uL (1.4-4.0); Lymphocytes % 8.6 % (21.2-54.2); Mean Corpuscular HGB Conc 30.7 GM/DL (32-36); Mean Corpuscular Volume 82.3 FL (87-102); Mean Platelet Volume 9.8 FL (9.6-12.0); Monocytes % 8.4 % (1.7-12.7); Neutrophils % 80.8 % (38.7-73.9); Platelet Count 218 T/CUMM (130-400); Red Blood Count 3.05 MC/CUMM (3.8-5.5); Red Cell Distribution Width 23.9 % (9.3-17.3); White Blood Count 14.5 T/CUMM (4-12)
[2020-11-28 06:56] LABS: Hypochromasia 2+; Microcytosis 1+; Platelet Estimate Adequate
[2020-11-28 07:06] LABS: Albumin 1.5 G/DL (3.4-5.0); Calcium 7.9 MG/DL (8.5-10.1); Osmolality,Calculated 267.7 MOS/KG (273-304); Potassium 3.9 MMOL/L (3.5-5.1); Total Protein 5.6 G/DL (6.4-8.2)
[2020-11-28] MEDS: FOLIC ACID 1 MG TABLET PO SCH (08:43)
[2020-11-28] MEDS: INSULIN GLARGINE 100 UNIT/ML SUBCUT SCH ×2 (08:43→20:53)
[2020-11-28] MEDS: INSULIN LISPRO 100 UNIT/ML SUBCUT SCH ×4 (08:44→20:52)
[2020-11-28] MEDS: ACETAMINOPHEN 325 MG TABLET PO PRN (16:23)
[2020-11-28 17:58] LABS: Hematocrit 24.9 VOL% (42.0-52.0); Hemoglobin 7.9 GM/DL (14.0-18.0)
[2020-11-28] MEDS: oxyCODONE IR 5 MG TABLET PO PRN (19:17)
[2020-11-28] MEDS: MORPHINE 4 MG/1 ML VIAL IV PRN (20:51)
[2020-11-29] MEDS: CIPROFLOXACIN INJ 400 MG/200 ML PREMIX IV SCH ×2 (04:30→17:14)
[2020-11-29] MEDS: MORPHINE 4 MG/1 ML VIAL IV PRN (04:30)
[2020-11-29] MEDS: PANTOPRAZOLE INJ 200 MG in SODIUM CHLORIDE 0.9% 250 ML IV SCH (04:30)
[2020-11-29 05:48] LABS: Albumin 1.5 G/DL (3.4-5.0); Bilirubin,Total 6.5 MG/DL (0.2-1.0); Calcium 7.9 MG/DL (8.5-10.1); Osmolality,Calculated 263.2 MOS/KG (273-304); Potassium 3.5 MMOL/L (3.5-5.1); Total Protein 5.8 G/DL (6.4-8.2)
[2020-11-29 08:08] LABS: Basophils % 0.2 % (0.0-0.8); Eosinophils # 0.1 10*3/uL (0.0-0.87); Eosinophils % 0.4 % (0.00-10.9); Hematocrit 24.7 VOL% (42.0-52.0); Hemoglobin 7.8 GM/DL (14.0-18.0); Immature Granulocytes % 1.3 %; Immature Granulocytes Absolute 0.15 #; Lymphocytes # 1.3 10*3/uL (1.4-4.0); Mean Corpuscular HGB Conc 31.6 GM/DL (32-36); Mean Corpuscular Volume 82.9 FL (87-102); Mean Platelet Volume 9.8 FL (9.6-12.0); Monocytes % 8.8 % (1.7-12.7); Neutrophils % 78.3 % (38.7-73.9); Platelet Count 186 T/CUMM (130-400); Red Blood Count 2.98 MC/CUMM (3.8-5.5); Red Cell Distribution Width 24.3 % (9.3-17.3); White Blood Count 11.8 T/CUMM (4-12)
[2020-11-29] MEDS: INSULIN GLARGINE 100 UNIT/ML SUBCUT SCH (08:13)
[2020-11-29] MEDS: INSULIN LISPRO 100 UNIT/ML SUBCUT SCH ×4 (08:16→21:44)
[2020-11-29] MEDS: FOLIC ACID 1 MG TABLET PO SCH (08:16)
[2020-11-29 08:27] LABS: Hypochromasia 2+; Microcytosis 1+
[2020-11-29 08:28] LABS: Ovalocytes Slight; Platelet Estimate Adequate; Polychromasia Slight; Target Cells Slight
[2020-11-29] MEDS ORDERED: fentaNYL 100 MCG/2 ML VIAL ONE ×2 (08:28→10:36)
[2020-11-29] MEDS ORDERED: LIDOCAINE 2% 5 ML VIAL ONE (08:28)
[2020-11-29] MEDS ORDERED: propofoL 200 MG/20 ML VIAL IV ONE (08:28)
[2020-11-29] MEDS ORDERED: MIDAZOLAM 2 MG/2 ML VIAL ONE (08:28)
[2020-11-29] MEDS ORDERED: PHENYLEPHRINE 1 MG/10 ML SYRINGE IV ONE (10:17)
[2020-11-29] MEDS ORDERED: ONDANSETRON 4 MG/2 ML VIAL ONE (10:22)
[2020-11-29] MEDS ORDERED: SEVOFLURANE 1 UNIT/15 MINUTE INH ONE (10:23)
[2020-11-29] MEDS ORDERED: LACTATED RINGERS 1,000 ML IV SCH (10:30)
[2020-11-29] MEDS ORDERED: VANCOMYCIN INJ 1,000 MG in SODIUM CHLORIDE 0.9% 250 ML IV SCH (11:00)
[2020-11-29] MEDS ORDERED: VANCOMYCIN INJ 1,750 MG in SODIUM CHLORIDE 0.9% 500 ML IV ONE (13:00)
[2020-11-29] MEDS: oxyCODONE IR 5 MG TABLET PO PRN (14:13)
[2020-11-29 18:27] LABS: Hematocrit 26.4 VOL% (42.0-52.0)
[2020-11-29] MEDS: PANTOPRAZOLE 40 MG VIAL IV SCH (20:56)
[2020-11-30] MEDS: VANCOMYCIN INJ 1,250 MG in SODIUM CHLORIDE 0.9% 250 ML IV SCH ×2 (01:49→13:55)
[2020-11-30] MEDS: MORPHINE 4 MG/1 ML VIAL IV PRN (01:54)
[2020-11-30] MEDS: CIPROFLOXACIN INJ 400 MG/200 ML PREMIX IV SCH ×2 (04:36→17:46)
[2020-11-30 05:17] LABS: Basophils % 0.2 % (0.0-0.8); Eosinophils % 0.2 % (0.00-10.9); Hematocrit 23.5 VOL% (42.0-52.0); Hemoglobin 7.1 GM/DL (14.0-18.0); Immature Granulocytes % 1.7 %; Immature Granulocytes Absolute 0.22 #; Lymphocytes # 1.3 10*3/uL (1.4-4.0); Lymphocytes % 9.6 % (21.2-54.2); Mean Corpuscular HGB Conc 30.2 GM/DL (32-36); Mean Corpuscular Volume 84.5 FL (87-102); Mean Platelet Volume 10.2 FL (9.6-12.0); Monocytes % 7.8 % (1.7-12.7); Neutrophils % 80.5 % (38.7-73.9); Platelet Count 165 T/CUMM (130-400); Red Blood Count 2.78 MC/CUMM (3.8-5.5); Red Cell Distribution Width 24.8 % (9.3-17.3); White Blood Count 13.3 T/CUMM (4-12)
[2020-11-30 05:40] LABS: Hypochromasia 1+; Microcytosis 1+; Platelet Estimate Adequate
[2020-11-30 05:54] LABS: Albumin 1.4 G/DL (3.4-5.0); Bilirubin,Total 7.5 MG/DL (0.2-1.0); Calcium 7.3 MG/DL (8.5-10.1); Osmolality,Calculated 268.7 MOS/KG (273-304); Potassium 3.6 MMOL/L (3.5-5.1); Total Protein 5.4 G/DL (6.4-8.2)
[2020-11-30] MEDS: oxyCODONE IR 5 MG TABLET PO PRN ×3 (06:22→20:35)
[2020-11-30 09:34] LABS: Hepatitis B Core IgM Quant < 0.05 Index; Hepatitis B Surface Ag Result Non-Reactive (NonReactive); Hepatitis C Virus Ab Quant 0.05 Index; Hepatitis C Virus Ab Result Non-Reactive (NonReactive)
[2020-11-30] MEDS: INSULIN GLARGINE 100 UNIT/ML SUBCUT SCH ×2 (09:54→20:34)
[2020-11-30] MEDS: PANTOPRAZOLE 40 MG VIAL IV SCH ×2 (09:54→20:33)
[2020-11-30] MEDS: FOLIC ACID 1 MG TABLET PO SCH (09:55)
[2020-11-30] MEDS: INSULIN LISPRO 100 UNIT/ML SUBCUT SCH ×4 (09:55→20:33)
[2020-11-30 10:28] LABS: Basophils % 0.2 % (0.0-0.8); Eosinophils % 0.1 % (0.00-10.9); Hematocrit 28.2 VOL% (42.0-52.0); Hemoglobin 8.4 GM/DL (14.0-18.0); Immature Granulocytes % 2.1 %; Immature Granulocytes Absolute 0.29 #; Lymphocytes % 7.4 % (21.2-54.2); Mean Corpuscular HGB Conc 29.8 GM/DL (32-36); Mean Corpuscular Volume 86.2 FL (87-102); Mean Platelet Volume 10.5 FL (9.6-12.0); Monocytes % 6.8 % (1.7-12.7); Neutrophils % 83.4 % (38.7-73.9); Platelet Count 189 T/CUMM (130-400); Red Blood Count 3.27 MC/CUMM (3.8-5.5); Red Cell Distribution Width 24.8 % (9.3-17.3); White Blood Count 13.7 T/CUMM (4-12)
[2020-11-30 10:47] LABS: Hypochromasia 1+; Microcytosis 1+; Platelet Estimate Adequate
[2020-11-30] MEDS: ALBUMIN 25% 25 GM/100 ML VIAL IV SCH ×2 (11:03→15:35)
[2020-11-30] MEDS ORDERED: DIAZEPAM 5 MG TABLET PO ONE (15:34)
[2020-12-01] MEDS: ALBUMIN 25% 25 GM/100 ML VIAL IV SCH ×4 (00:09→23:26)
[2020-12-01] MEDS: VANCOMYCIN INJ 1,250 MG in SODIUM CHLORIDE 0.9% 250 ML IV SCH ×2 (01:15→13:42)
[2020-12-01] MEDS: MORPHINE 4 MG/1 ML VIAL IV PRN ×2 (02:30→09:33)
[2020-12-01] MEDS: CIPROFLOXACIN INJ 400 MG/200 ML PREMIX IV SCH ×2 (05:53→20:18)
[2020-12-01] MEDS: oxyCODONE IR 5 MG TABLET PO PRN ×2 (06:44→18:26)
[2020-12-01] MEDS: PANTOPRAZOLE 40 MG VIAL IV SCH ×2 (09:30→20:18)
[2020-12-01] MEDS: FOLIC ACID 1 MG TABLET PO SCH (09:30)
[2020-12-01] MEDS: INSULIN GLARGINE 100 UNIT/ML SUBCUT SCH ×2 (09:30→20:19)
[2020-12-01] MEDS: INSULIN LISPRO 100 UNIT/ML SUBCUT SCH ×4 (09:30→20:19)
[2020-12-01] MEDS ORDERED: POTASSIUM CHLORIDE 20 MEQ TABLET PO PRN (11:32)
[2020-12-01 11:37] LABS: Basophils % 0.1 % (0.0-0.8); Eosinophils % 0.4 % (0.00-10.9); Hematocrit 23.6 VOL% (42.0-52.0); Hemoglobin 7.4 GM/DL (14.0-18.0); Immature Granulocytes % 1.3 %; Immature Granulocytes Absolute 0.14 #; Lymphocytes # 0.9 10*3/uL (1.4-4.0); Lymphocytes % 8.5 % (21.2-54.2); Mean Corpuscular HGB Conc 31.4 GM/DL (32-36); Mean Corpuscular Volume 84.6 FL (87-102); Monocytes % 6.5 % (1.7-12.7); Neutrophils % 83.2 % (38.7-73.9); Platelet Count 159 T/CUMM (130-400); Red Blood Count 2.79 MC/CUMM (3.8-5.5); Red Cell Distribution Width 25.2 % (9.3-17.3); White Blood Count 10.8 T/CUMM (4-12)
[2020-12-01] MEDS: VANCOMYCIN INJ 1,000 MG in SODIUM CHLORIDE 0.9% 250 ML IV SCH ×2 (14:57→21:22)
[2020-12-02] MEDS: VANCOMYCIN INJ 1,000 MG in SODIUM CHLORIDE 0.9% 250 ML IV SCH (05:06)
[2020-12-02 06:05] LABS: Basophils % 0.2 % (0.0-0.8); Eosinophils # 0.1 10*3/uL (0.0-0.87); Eosinophils % 0.7 % (0.00-10.9); Hematocrit 23.9 VOL% (42.0-52.0); Hemoglobin 7.3 GM/DL (14.0-18.0); Immature Granulocytes % 1.9 %; Immature Granulocytes Absolute 0.19 #; Lymphocytes # 1.1 10*3/uL (1.4-4.0); Lymphocytes % 11.1 % (21.2-54.2); Mean Corpuscular HGB Conc 30.5 GM/DL (32-36); Mean Corpuscular Volume 85.7 FL (87-102); Mean Platelet Volume 10.5 FL (9.6-12.0); Monocytes % 7.4 % (1.7-12.7); Neutrophils % 78.7 % (38.7-73.9); Platelet Count 190 T/CUMM (130-400); Red Blood Count 2.79 MC/CUMM (3.8-5.5); Red Cell Distribution Width 25.4 % (9.3-17.3); White Blood Count 9.8 T/CUMM (4-12)
[2020-12-02 06:28] LABS: Albumin 2.2 G/DL (3.4-5.0); Bilirubin,Total 4.4 MG/DL (0.2-1.0); Calcium 8.1 MG/DL (8.5-10.1); Osmolality,Calculated 268.8 MOS/KG (273-304); Potassium 3.2 MMOL/L (3.5-5.1); Total Protein 5.7 G/DL (6.4-8.2)
[2020-12-02] MEDS: ALBUMIN 25% 25 GM/100 ML VIAL IV SCH ×3 (09:33→23:30)
[2020-12-02] MEDS: INSULIN LISPRO 100 UNIT/ML SUBCUT SCH ×4 (09:33→21:31)
[2020-12-02] MEDS: FOLIC ACID 1 MG TABLET PO SCH (09:33)
[2020-12-02] MEDS: PANTOPRAZOLE 40 MG VIAL IV SCH ×2 (09:34→21:30)
[2020-12-02] MEDS: MORPHINE 4 MG/1 ML VIAL IV PRN ×2 (09:43→12:41)
[2020-12-02] MEDS: INSULIN GLARGINE 100 UNIT/ML SUBCUT SCH ×2 (09:44→21:32)
[2020-12-02] MEDS: CIPROFLOXACIN INJ 400 MG/200 ML PREMIX IV SCH ×2 (09:45→21:35)
[2020-12-03] MEDS: ALBUMIN 25% 25 GM/100 ML VIAL IV SCH ×2 (08:48→15:52)
[2020-12-03] MEDS: PANTOPRAZOLE 40 MG VIAL IV SCH ×2 (08:49→21:04)
[2020-12-03] MEDS: FOLIC ACID 1 MG TABLET PO SCH (08:49)
[2020-12-03] MEDS: INSULIN GLARGINE 100 UNIT/ML SUBCUT SCH ×2 (08:49→22:04)
[2020-12-03] MEDS: INSULIN LISPRO 100 UNIT/ML SUBCUT SCH ×4 (09:55→21:07)
[2020-12-03] MEDS: CIPROFLOXACIN INJ 400 MG/200 ML PREMIX IV SCH (10:04)
[2020-12-03] MEDS: oxyCODONE IR 5 MG TABLET PO PRN (18:08)
[2020-12-03] MEDS: CIPROFLOXACIN 500 MG TABLET PO SCH (21:03)
[2020-12-04] MEDS: ALBUMIN 25% 25 GM/100 ML VIAL IV SCH ×2 (00:05→08:53)
[2020-12-04] MEDS: oxyCODONE IR 5 MG TABLET PO PRN ×2 (00:13→04:04)
[2020-12-04] MEDS: INSULIN LISPRO 100 UNIT/ML SUBCUT SCH ×2 (08:31→11:44)
[2020-12-04] MEDS: CIPROFLOXACIN 500 MG TABLET PO SCH (08:53)
[2020-12-04] MEDS: FOLIC ACID 1 MG TABLET PO SCH (08:53)
[2020-12-04] MEDS: PANTOPRAZOLE 40 MG VIAL IV SCH (08:54)
[2020-12-04] MEDS: INSULIN GLARGINE 100 UNIT/ML SUBCUT SCH (09:50)
[2020-12-04 11:58] VITALS: BP 108/68
== END 2020-12-04 16:15 | disposition home or self-care (01) | DRG 280 ==
LOC: N.ED 03:29 → N.EDINP 03:29 → N.5E 05:42 → SUATTDRO 09:49
PROVIDERS: ADMIT Internal Medicine; ATTEND Internal Medicine

== ENCOUNTER 2020-12-12 07:02 | Inpatient (IN) ==
[2020-12-12] MEDS ORDERED: ONDANSETRON 4 MG/2 ML VIAL IV STA (07:35)
[2020-12-12] MEDS ORDERED: PANTOPRAZOLE 40 MG VIAL IV STA (07:35)
[2020-12-12 07:55] LABS: Basophils % 0.2 % (0.0-0.8); Eosinophils % 0.1 % (0.00-10.9); Hematocrit 23.6 VOL% (42.0-52.0); Hemoglobin 7.6 GM/DL (14.0-18.0); Immature Granulocytes % 0.6 %; Immature Granulocytes Absolute 0.09 #; Lymphocytes # 0.4 10*3/uL (1.4-4.0); Lymphocytes % 2.9 % (21.2-54.2); Mean Corpuscular HGB Conc 32.2 GM/DL (32-36); Mean Corpuscular Volume 87.7 FL (87-102); Mean Platelet Volume 10.2 FL (9.6-12.0); Monocytes % 5.6 % (1.7-12.7); Neutrophils % 90.6 % (38.7-73.9); Platelet Count 245 T/CUMM (130-400); Red Blood Count 2.69 MC/CUMM (3.8-5.5); Red Cell Distribution Width 23.9 % (9.3-17.3); White Blood Count 14.3 T/CUMM (4-12)
[2020-12-12 08:00] LABS: INR 1.1; PT Patient Result 12.1 SECS (10.5-12.0); Partial Thromboplastin Time 28.6 SECS (23.9-33.8)
[2020-12-12 08:03] LABS: Albumin 2.8 G/DL (3.4-5.0); Bilirubin,Total 4.8 MG/DL (0.2-1.0); Calcium 9.6 MG/DL (8.5-10.1); Osmolality,Calculated 281.1 MOS/KG (273-304); Potassium 3.7 MMOL/L (3.5-5.1); Total Protein 6.8 G/DL (6.4-8.2)
[2020-12-12 08:22] LABS: Band Neutrophils 2 % (0-10); Hypochromasia 1+; Lymphocytes 1 % (20-55); Microcytosis 1+; Ovalocytes Slight; Platelet Estimate Adequate; Segmented Neutrophils 91 % (50-85); Total Cells Counted 100
[2020-12-12] MEDS ORDERED: GLUCAGON 1 MG VIAL IM PRN (08:27)
[2020-12-12] MEDS ORDERED: ONDANSETRON 4 MG/2 ML VIAL IV PRN (08:27)
[2020-12-12] MEDS ORDERED: SODIUM CHLORIDE 0.9% 1,000 ML IV SCH (08:30)
[2020-12-12 09:54] LABS: Hematocrit 22.8 VOL% (42.0-52.0); Hemoglobin 7.2 GM/DL (14.0-18.0)
[2020-12-12] MEDS: SPIRONOLACTONE 100 MG TABLET PO SCH (11:35)
[2020-12-12] MEDS: FERROUS SULFATE 325 MG TABLET PO SCH (11:35)
[2020-12-12] MEDS: predniSONE 10 MG TABLET PO SCH ×2 (11:35→20:18)
[2020-12-12] MEDS: azaTHIOprine 50 MG TABLET PO SCH ×2 (11:35→20:17)
[2020-12-12] MEDS: CIPROFLOXACIN 500 MG TABLET PO SCH ×2 (11:35→20:17)
[2020-12-12] MEDS: PANTOPRAZOLE INJ 200 MG in SODIUM CHLORIDE 0.9% 250 ML IV SCH (12:51)
[2020-12-12] MEDS: OCTREOTIDE 500 MCG in SODIUM CHLORIDE 0.9% 100 ML IV SCH ×2 (12:52→22:19)
[2020-12-12] MEDS: INSULIN GLARGINE 100 UNIT/ML SUBCUT SCH (13:04)
[2020-12-12] MEDS: INSULIN LISPRO 100 UNIT/ML SUBCUT SCH ×2 (13:05→17:56)
[2020-12-12] MEDS: traMADol 50 MG TABLET PO PRN ×2 (14:04→20:21)
[2020-12-12 15:01] LABS: Hematocrit 23.7 VOL% (42.0-52.0); Hemoglobin 7.4 GM/DL (14.0-18.0)
[2020-12-12] MEDS: DEXTROSE 50% 25 GM/50 ML VIAL IV PRN ×2 (17:53→20:53)
[2020-12-12] MEDS: DEXTROSE 5% NACL 0.9% 1,000 ML IV SCH (20:18)
[2020-12-12 20:40] LABS: Hemoglobin 7.1 GM/DL (14.0-18.0)
[2020-12-13 03:16] LABS: Basophils % 0.1 % (0.0-0.8); Hematocrit 22.4 VOL% (42.0-52.0); Hemoglobin 6.9 GM/DL (14.0-18.0); Immature Granulocytes % 0.4 %; Immature Granulocytes Absolute 0.03 #; Lymphocytes # 0.5 10*3/uL (1.4-4.0); Lymphocytes % 7.3 % (21.2-54.2); Mean Corpuscular HGB Conc 30.8 GM/DL (32-36); Mean Corpuscular Volume 92.2 FL (87-102); Monocytes % 3.3 % (1.7-12.7); Neutrophils % 88.9 % (38.7-73.9); Platelet Count 199 T/CUMM (130-400); Red Blood Count 2.43 MC/CUMM (3.8-5.5); White Blood Count 6.7 T/CUMM (4-12)
[2020-12-13 03:24] LABS: Calcium 8.3 MG/DL (8.5-10.1); Osmolality,Calculated 282.2 MOS/KG (273-304); Potassium 4.9 MMOL/L (3.5-5.1)
[2020-12-13] MEDS ORDERED: SODIUM CHLORIDE 0.9% 1,000 ML IV PRN (03:24)
[2020-12-13 03:45] LABS: Hypochromasia 2+; Microcytosis 1+
[2020-12-13 03:46] LABS: Ovalocytes Slight; Platelet Estimate Adequate
[2020-12-13] MEDS: DEXTROSE 5% NACL 0.9% 1,000 ML IV SCH (05:08)
[2020-12-13] MEDS: INSULIN LISPRO 100 UNIT/ML SUBCUT SCH ×5 (06:34→23:38)
[2020-12-13] MEDS ORDERED: INSULIN REGULAR 100 UNIT/ML IV STA (07:49)
[2020-12-13] MEDS: INSULIN GLARGINE 100 UNIT/ML SUBCUT SCH ×2 (08:18→09:31)
[2020-12-13] MEDS ORDERED: LACTATED RINGERS 1,000 ML IV SCH (08:30)
[2020-12-13] MEDS ORDERED: ETOMIDATE 20 MG/10 ML VIAL IV ONE (09:29)
[2020-12-13] MEDS ORDERED: propofoL 200 MG/20 ML VIAL IV ONE (09:29)
[2020-12-13] MEDS ORDERED: LIDOCAINE 2% 5 ML VIAL ONE (09:29)
[2020-12-13] MEDS ORDERED: fentaNYL 100 MCG/2 ML VIAL ONE (09:42)
[2020-12-13] MEDS: OCTREOTIDE 500 MCG in SODIUM CHLORIDE 0.9% 100 ML IV SCH ×2 (10:54→17:03)
[2020-12-13] MEDS: CIPROFLOXACIN 500 MG TABLET PO SCH (10:55)
[2020-12-13] MEDS: FERROUS SULFATE 325 MG TABLET PO SCH (10:55)
[2020-12-13] MEDS: predniSONE 10 MG TABLET PO SCH ×2 (10:55→21:25)
[2020-12-13] MEDS: SPIRONOLACTONE 100 MG TABLET PO SCH (10:55)
[2020-12-13] MEDS: azaTHIOprine 50 MG TABLET PO SCH ×2 (10:55→21:25)
[2020-12-13 11:29] LABS: Hematocrit 27.3 VOL% (42.0-52.0)
[2020-12-13 11:32] LABS: Hemoglobin 8.3 GM/DL (14.0-18.0)
[2020-12-13] MEDS: metroNIDAZOLE INJ 500 MG/100 ML PREMIX IV SCH ×3 (12:43→21:25)
[2020-12-13] MEDS: PANTOPRAZOLE INJ 200 MG in SODIUM CHLORIDE 0.9% 250 ML IV SCH ×2 (12:43→13:38)
[2020-12-13] MEDS: NAFCILLIN 2,000 MG in SODIUM CHLORIDE 0.9% 100 ML IV SCH ×3 (15:40→23:37)
[2020-12-14] MEDS: OCTREOTIDE 500 MCG in SODIUM CHLORIDE 0.9% 100 ML IV SCH ×2 (03:00→15:40)
[2020-12-14] MEDS: NAFCILLIN 2,000 MG in SODIUM CHLORIDE 0.9% 100 ML IV SCH ×6 (03:00→21:21)
[2020-12-14] MEDS: metroNIDAZOLE INJ 500 MG/100 ML PREMIX IV SCH (04:05)
[2020-12-14] MEDS: INSULIN LISPRO 100 UNIT/ML SUBCUT SCH ×3 (05:56→18:13)
[2020-12-14] MEDS: SPIRONOLACTONE 100 MG TABLET PO SCH (08:56)
[2020-12-14] MEDS: predniSONE 10 MG TABLET PO SCH ×2 (08:57→21:21)
[2020-12-14] MEDS: INSULIN GLARGINE 100 UNIT/ML SUBCUT SCH (08:57)
[2020-12-14] MEDS: FERROUS SULFATE 325 MG TABLET PO SCH (08:57)
[2020-12-14] MEDS: azaTHIOprine 50 MG TABLET PO SCH ×2 (08:57→21:21)
[2020-12-14 10:36] LABS: Basophils % 0.2 % (0.0-0.8); Eosinophils % 0.4 % (0.00-10.9); Hematocrit 27.9 VOL% (42.0-52.0); Hemoglobin 8.6 GM/DL (14.0-18.0); Immature Granulocytes % 0.6 %; Immature Granulocytes Absolute 0.03 #; Lymphocytes # 0.6 10*3/uL (1.4-4.0); Lymphocytes % 12.1 % (21.2-54.2); Mean Corpuscular HGB Conc 30.8 GM/DL (32-36); Mean Corpuscular Volume 92.4 FL (87-102); Mean Platelet Volume 10.2 FL (9.6-12.0); Monocytes % 5.3 % (1.7-12.7); Neutrophils % 81.4 % (38.7-73.9); Platelet Count 225 T/CUMM (130-400); Red Blood Count 3.02 MC/CUMM (3.8-5.5); Red Cell Distribution Width 22.8 % (9.3-17.3); White Blood Count 5.3 T/CUMM (4-12)
[2020-12-14 10:53] LABS: Hypochromasia 1+; Microcytosis 1+
[2020-12-14 10:54] LABS: Platelet Estimate Normal; Tear Drop Cells Slight
[2020-12-14] MEDS ORDERED: INSULIN GLARGINE 100 UNIT/ML SUBCUT ONE (12:00)
[2020-12-14] MEDS: PANTOPRAZOLE 40 MG VIAL IV SCH (21:22)
[2020-12-15] MEDS: OCTREOTIDE 500 MCG in SODIUM CHLORIDE 0.9% 100 ML IV SCH ×2 (00:43→13:16)
[2020-12-15] MEDS: NAFCILLIN 2,000 MG in SODIUM CHLORIDE 0.9% 100 ML IV SCH ×7 (00:43→23:19)
[2020-12-15] MEDS: INSULIN LISPRO 100 UNIT/ML SUBCUT SCH ×5 (00:44→23:20)
[2020-12-15 06:10] LABS: Basophils % 0.4 % (0.0-0.8); Eosinophils % 0.6 % (0.00-10.9); Hematocrit 28.8 VOL% (42.0-52.0); Hemoglobin 8.9 GM/DL (14.0-18.0); Immature Granulocytes % 0.7 %; Immature Granulocytes Absolute 0.04 #; Lymphocytes # 1.1 10*3/uL (1.4-4.0); Lymphocytes % 20.6 % (21.2-54.2); Mean Corpuscular HGB Conc 30.9 GM/DL (32-36); Mean Corpuscular Volume 92.6 FL (87-102); Mean Platelet Volume 9.8 FL (9.6-12.0); Monocytes % 6.7 % (1.7-12.7); Platelet Count 223 T/CUMM (130-400); Red Blood Count 3.11 MC/CUMM (3.8-5.5); Red Cell Distribution Width 22.9 % (9.3-17.3); White Blood Count 5.3 T/CUMM (4-12)
[2020-12-15 08:45] LABS: Anisocytosis 2+; Band Neutrophils 6 % (0-10); Eosinophils 1 % (0-10); Lymphocytes 25 % (20-55); Macrocytosis 1+; Platelet Estimate Normal; Segmented Neutrophils 64 % (50-85); Total Cells Counted 100
[2020-12-15] MEDS: azaTHIOprine 50 MG TABLET PO SCH ×2 (09:03→20:00)
[2020-12-15] MEDS: predniSONE 10 MG TABLET PO SCH ×2 (09:03→20:00)
[2020-12-15] MEDS: FERROUS SULFATE 325 MG TABLET PO SCH (09:03)
[2020-12-15] MEDS: SPIRONOLACTONE 100 MG TABLET PO SCH (09:03)
[2020-12-15] MEDS: INSULIN GLARGINE 100 UNIT/ML SUBCUT SCH (09:06)
[2020-12-15] MEDS: PANTOPRAZOLE 40 MG VIAL IV SCH ×2 (09:07→20:01)
[2020-12-16] MEDS: INSULIN LISPRO 100 UNIT/ML SUBCUT SCH ×3 (05:15→18:00)
[2020-12-16] MEDS: NAFCILLIN 2,000 MG in SODIUM CHLORIDE 0.9% 100 ML IV SCH ×5 (05:18→21:09)
[2020-12-16 06:27] LABS: Basophils % 0.4 % (0.0-0.8); Eosinophils % 0.8 % (0.00-10.9); Hematocrit 28.1 VOL% (42.0-52.0); Hemoglobin 8.6 GM/DL (14.0-18.0); Immature Granulocytes % 1.2 %; Immature Granulocytes Absolute 0.06 #; Lymphocytes # 1.2 10*3/uL (1.4-4.0); Mean Corpuscular HGB Conc 30.6 GM/DL (32-36); Mean Corpuscular Volume 93.7 FL (87-102); Monocytes % 7.4 % (1.7-12.7); Neutrophils % 66.2 % (38.7-73.9); Platelet Count 193 T/CUMM (130-400); Red Cell Distribution Width 22.2 % (9.3-17.3)
[2020-12-16 06:42] LABS: Calcium 8.3 MG/DL (8.5-10.1); Osmolality,Calculated 277.4 MOS/KG (273-304); Potassium 3.5 MMOL/L (3.5-5.1)
[2020-12-16 06:52] LABS: Hypochromasia 1+; Microcytosis 1+; Platelet Estimate Adequate
[2020-12-16] MEDS ORDERED: MAGNESIUM SULF RIDER 2 GM/50 ML PREMIX IV ONE (09:02)
[2020-12-16] MEDS: INSULIN GLARGINE 100 UNIT/ML SUBCUT SCH (09:19)
[2020-12-16] MEDS: SPIRONOLACTONE 100 MG TABLET PO SCH (09:20)
[2020-12-16] MEDS: PANTOPRAZOLE 40 MG VIAL IV SCH ×2 (09:20→21:09)
[2020-12-16] MEDS: FERROUS SULFATE 325 MG TABLET PO SCH (09:20)
[2020-12-16] MEDS: azaTHIOprine 50 MG TABLET PO SCH ×2 (09:21→21:09)
[2020-12-16] MEDS: predniSONE 10 MG TABLET PO SCH ×2 (09:21→21:09)
[2020-12-17] MEDS: INSULIN LISPRO 100 UNIT/ML SUBCUT SCH ×4 (00:14→17:53)
[2020-12-17] MEDS: NAFCILLIN 2,000 MG in SODIUM CHLORIDE 0.9% 100 ML IV SCH ×6 (00:15→20:55)
[2020-12-17 04:47] LABS: Basophils % 0.3 % (0.0-0.8); Eosinophils % 0.3 % (0.00-10.9); Hematocrit 28.2 VOL% (42.0-52.0); Hemoglobin 8.7 GM/DL (14.0-18.0); Immature Granulocytes % 1.7 %; Lymphocytes # 0.8 10*3/uL (1.4-4.0); Lymphocytes % 13.2 % (21.2-54.2); Mean Corpuscular HGB Conc 30.9 GM/DL (32-36); Mean Corpuscular Volume 93.4 FL (87-102); Mean Platelet Volume 10.7 FL (9.6-12.0); Monocytes % 8.3 % (1.7-12.7); Neutrophils % 76.2 % (38.7-73.9); Platelet Count 172 T/CUMM (130-400); Red Blood Count 3.02 MC/CUMM (3.8-5.5); Red Cell Distribution Width 22.3 % (9.3-17.3); White Blood Count 5.9 T/CUMM (4-12)
[2020-12-17 05:08] LABS: Calcium 8.1 MG/DL (8.5-10.1); Osmolality,Calculated 281.8 MOS/KG (273-304); Potassium 3.4 MMOL/L (3.5-5.1)
[2020-12-17 05:09] LABS: Hypochromasia 1+; Microcytosis 1+; Platelet Estimate Adequate
[2020-12-17] MEDS: PANTOPRAZOLE 40 MG VIAL IV SCH ×2 (09:42→20:56)
[2020-12-17] MEDS: predniSONE 10 MG TABLET PO SCH ×2 (09:43→20:58)
[2020-12-17] MEDS: INSULIN GLARGINE 100 UNIT/ML SUBCUT SCH (09:43)
[2020-12-17] MEDS: azaTHIOprine 50 MG TABLET PO SCH ×2 (09:43→20:58)
[2020-12-17] MEDS: FERROUS SULFATE 325 MG TABLET PO SCH (09:43)
[2020-12-17] MEDS: SPIRONOLACTONE 100 MG TABLET PO SCH (09:52)
[2020-12-17] MEDS ORDERED: POTASSIUM CHLORIDE 10 MEQ TABLET PO ONE (14:05)
[2020-12-18] MEDS: NAFCILLIN 2,000 MG in SODIUM CHLORIDE 0.9% 100 ML IV SCH ×6 (00:25→20:25)
[2020-12-18] MEDS: INSULIN LISPRO 100 UNIT/ML SUBCUT SCH ×5 (00:26→20:24)
[2020-12-18 04:39] LABS: Basophils % 0.6 % (0.0-0.8); Eosinophils % 0.6 % (0.00-10.9); Hematocrit 26.4 VOL% (42.0-52.0); Hemoglobin 8.4 GM/DL (14.0-18.0); Immature Granulocytes % 4.9 %; Immature Granulocytes Absolute 0.26 #; Lymphocytes # 0.9 10*3/uL (1.4-4.0); Lymphocytes % 17.2 % (21.2-54.2); Mean Corpuscular HGB Conc 31.8 GM/DL (32-36); Mean Corpuscular Volume 92.6 FL (87-102); Mean Platelet Volume 10.6 FL (9.6-12.0); Monocytes % 6.7 % (1.7-12.7); Platelet Count 158 T/CUMM (130-400); Red Blood Count 2.85 MC/CUMM (3.8-5.5); Red Cell Distribution Width 22.3 % (9.3-17.3); White Blood Count 5.4 T/CUMM (4-12)
[2020-12-18 05:04] LABS: Hypochromasia 1+; Microcytosis 1+; Platelet Estimate Adequate
[2020-12-18 05:28] LABS: Albumin 2.4 G/DL (3.4-5.0); Bilirubin,Total 6.1 MG/DL (0.2-1.0); Calcium 7.9 MG/DL (8.5-10.1); Osmolality,Calculated 279.8 MOS/KG (273-304); Potassium 3.5 MMOL/L (3.5-5.1); Total Protein 5.9 G/DL (6.4-8.2)
[2020-12-18] MEDS: predniSONE 10 MG TABLET PO SCH ×2 (08:32→20:24)
[2020-12-18] MEDS: azaTHIOprine 50 MG TABLET PO SCH ×2 (08:32→20:24)
[2020-12-18] MEDS: FERROUS SULFATE 325 MG TABLET PO SCH (08:32)
[2020-12-18] MEDS: INSULIN GLARGINE 100 UNIT/ML SUBCUT SCH (08:33)
[2020-12-18] MEDS: PANTOPRAZOLE 40 MG VIAL IV SCH (08:33)
[2020-12-18] MEDS: SPIRONOLACTONE 100 MG TABLET PO SCH (09:19)
[2020-12-18 14:34] LABS: % Iron Saturation 52.6 % (18-50); Ferritin 207.2 ng/ml (26-388)
[2020-12-18 14:45] LABS: Folate 10.76 NG/ML (5.38-24.0)
[2020-12-18] MEDS: PANTOPRAZOLE 40 MG TABLET PO SCH (20:24)
[2020-12-19] MEDS: NAFCILLIN 2,000 MG in SODIUM CHLORIDE 0.9% 100 ML IV SCH ×4 (00:15→12:46)
[2020-12-19] MEDS: INSULIN LISPRO 100 UNIT/ML SUBCUT SCH ×2 (08:38→12:38)
[2020-12-19] MEDS ORDERED: INSULIN GLARGINE 100 UNIT/ML SUBCUT SCH (09:00)
[2020-12-19] MEDS: FERROUS SULFATE 325 MG TABLET PO SCH (09:47)
[2020-12-19] MEDS: azaTHIOprine 50 MG TABLET PO SCH (09:47)
[2020-12-19] MEDS: SPIRONOLACTONE 100 MG TABLET PO SCH (09:47)
[2020-12-19] MEDS: PANTOPRAZOLE 40 MG TABLET PO SCH (09:47)
[2020-12-19] MEDS: predniSONE 10 MG TABLET PO SCH (09:47)
[2020-12-19 11:58] VITALS: BP 106/59
== END 2020-12-19 12:40 | disposition home health service (06) | DRG 280 ==
LOC: N.ED 07:02 → N.EDINP 08:27 → SUATTDRO 08:27 → N.5E 09:35
PROVIDERS: ADMIT Internal Medicine; ATTEND Internal Medicine
PROC: EGDWEBL (ICD-10-PCS; 2020-12-13 08:05)